=== PATIENT | female | born 1970 | race Caucasian/White ===

== ENCOUNTER 2019-04-11 13:13 | Outpatient (CLI) | payer BC ==
--- NOTE | 2019-04-11 14:25 | ULT ---
FOCUSED ULTRASOUND RIGHT BREAST: 04/11/2019 HISTORY: Evaluate circumscribed lesion noted on recent mammography within the inferior slightly medial right b reast, posterior depth. FINDINGS: Focused ultrasound of the right breast at the 5 o'clock position demonstrates an oval hypoechoic lesi on, measuring 8 x 4 mm. It demonstrates a linear internal focus of echogenicity, suggesting a hilum, on the basis of an intramammary lymph node. This is consistent with the mammographic appearance. As this is a new finding and internal blood flow cannot be definitively seen, follow up ultrasound and d iagnostic mammogram advised in 6 months. IMPRESSION: BIRADS3-probably benign. Focused ultrasound demonstrates a hypoechoic lesion suggesting with an intr amammary lymph node, given findings on mammography. Recommend follow up in 6 months. POS: [facility]
== END 2019-04-11 13:14 | disposition home or self-care (01) ==
LOC: BICULT 13:13
PROVIDERS: ATTEND Obstetrics & Gynecology
DX: N63.10 Unspecified lump in the right breast, unspecified quadrant (principal); N64.89 Other specified disorders of breast

== ENCOUNTER 2019-10-13 07:41 | Outpatient (CLI) | payer BC ==
--- NOTE | 2019-10-13 11:47 | ULT ---
RIGHT BREAST ULTRASOUND: HISTORY: Followup of right breast nodule. COMPARISON: A 04/11/2019 exam. FINDINGS: Real-time imaging of the area of concern could not definitely demonstrate what appeared to probably h ave been an intramammary node on the prior exam. It may have represented a cyst that has resolved. IMPRESSION: The right breast lesion is not demonstrated on today's study. POS: [facility]
== END 2019-10-13 07:42 | disposition home or self-care (01) ==
LOC: BICULT 07:41
PROVIDERS: ATTEND Obstetrics & Gynecology
DX: R92.2 Inconclusive mammogram (principal); N64.89 Other specified disorders of breast